=== PATIENT | female | born 1965 | race Caucasian/White ===

== ENCOUNTER → 2020-11-22 | Outpatient (CLI) | payer OTHER ==
[~2020-11-22] MED LIST: CRESTOR10 MG PO; CYCLOBENZAPRINE10 MG PO; CYMBALTA 30 MG30 MG PO; DULOXETINE HCL60 MG PO; FLEXERIL 10 MG10 MG PO; GABAPENTIN100 MG PO; GLIMEPIRIDE4 MG PO; HYDROCODON-ACE1 EAC6 PO; INVOKANA300 MG PO; METOCLOPRAMIDE10 MG PO; NORCO 5-325 TA1 EACH PO; OMEPRAZOLE40 MG PO; PHENTERMINE H37.5 M1 PO; PRAVASTATIN SOD20 MG PO; PRINIVIL20 MG PO; REQUIP0.5 MG PO; ROPINIROLE HCL2 MG PO; SYMBICORT 16010.2 GM INH; TRAMADOL HCL50 MG PO; ULTRAM50 MG PO; VICTOZA 1818 MG/3 ML SC; VOLTAREN100 GM TP
[2020-11-22 13:33] LABS: BUN/CREATININE RATIO 12 (0-10)
== END ==
LOC: OPSV2 12:30
PROVIDERS: Orthopaedic Surgery
DX: Z01.818 Encounter for other preprocedural examination (principal); M65.311 Trigger thumb, right thumb; R94.31 Abnormal electrocardiogram [ECG] [EKG]
CPT/HCPCS: 36415; 80048; 93005

== ENCOUNTER → 2020-11-24 | Day surgery (SDC) | payer OTHER ==
[~2020-11-24] VITALS: Ht 162.6 cm; Wt 71.2 kg
== END | disposition home or self-care (01) ==
LOC: OR 06:43
PROVIDERS: Orthopaedic Surgery
PROC: 01N50ZZ Release Median Nerve, Open Approach (ICD-10-PCS; principal; 2020-11-24 08:15)
PROC: 0LN70ZZ Release Right Hand Tendon, Open Approach (ICD-10-PCS; 2020-11-24 08:15)
DX: G56.03 Carpal tunnel syndrome, bilateral upper limbs (principal); M65.311 Trigger thumb, right thumb; I10 Essential (primary) hypertension; E78.5 Hyperlipidemia, unspecified; K76.0 Fatty (change of) liver, not elsewhere classified; E11.9 Type 2 diabetes mellitus without complications; Z88.0 Allergy status to penicillin; Z79.891 Long term (current) use of opiate analgesic; Z79.899 Other long term (current) drug therapy; Z20.822 Contact with and (suspected) exposure to COVID-19; Z79.84 Long term (current) use of oral hypoglycemic drugs
CPT/HCPCS: 82962; J1885; J2001; J2250; J2704; J3010; J7030; J7120